=== PATIENT | female | born 1960 | race Caucasian/White ===

== ENCOUNTER 2017-02-27 15:42 | Emergency (ER) | payer OTHER ==
--- NOTE | ~2017-02-27 | ER ---
[facility] 56 [facility] [address] ROOM: [place] [id number] LOCATION: ED ADMIT DATE: 02/27/2017 ER/Outpatient Report DISCHARGE DATE: 02/27/2017 FAMILY PHYSICIAN: Ivette Winter MD ATTENDING PHYSICIAN: Enrique Vazquez Time of Arrival: 1545 hours. Time of Evaluation: 1550 hours. CHIEF COMPLAINT: Chest pain and shortness of breath. HISTORY OF PRESENT ILLNESS: The patient states around noon today, she became short of breath, felt heaviness in upper chest up into her throat and into her left arm. She states she became nauseated, but has not vomited. Did not have episodes of weakness or diaphoretic. States that she has had episodes like this before, but they have never lasted this long. She continues to have generalized fullness in her throat she reports. ALLERGIES: NO KNOWN ALLERGIES. CURRENT MEDICATIONS: On her chart and reviewed by me. PAST MEDICAL HISTORY: Mood swings, GERD, and vitamin D deficiency. PAST SURGERIES: Bilateral carpal tunnel, right foot surgery, and tubal ligation. SOCIAL HISTORY: She presents to the ER with her and daughter. Denies use of tobacco or drugs. Does drink alcohol on a social basis. REVIEW OF SYSTEMS: All negative other than those mentioned in the HPI. She states she did take aspirin at noon. PHYSICAL EXAMINATION: VITAL SIGNS: She weighs 100 kilograms, blood pressure is 174/98, pulse is 64, respirations 15, temperature is 99.1 tympanic, and O2 saturation is 96% on room air. Quintin Coma Scale is 15. GENERAL: She is awake, alert, and oriented x4. PATIENT'S NAME: JOVANI BRANNON [facility] AGE: 56 Y [address] ROOM: [place], [place] [address] LOCATION: [facility] ADMIT DATE: 02/27/2017 ER/Outpatient Report DISCHARGE DATE: 02/27/2017 FAMILY PHYSICIAN: Ivette Winter MD ATTENDING PHYSICIAN: Enrique Vazquez SKIN: [place], warm, and dry. RESPIRATIONS: Even and nonlabored. Lung sounds are clear throughout. HEART: Regular rate and rhythm. ABDOMEN: Soft. Nondistended. Bowel sounds are present. She walked in with a steady even gait. LABORATORY DATA AND X-RAYS: EKG was completed, it shows sinus rhythm, reviewed with Dr. Vazquez. CBC is within normal limits. Chem panel is within normal limits. Cardiac enzymes are negative. D-dimer was negative. EMERGENCY DEPARTMENT COURSE: The patient was monitored. Pain did improve on its own. Repeat EKG is unchanged. Repeat cardiac enzymes are within normal limits. Vital signs remained stable. Blood pressure did come down nicely and she was pain-free at the time of discharge. IMPRESSION: Chest pain. PLAN: Home. Rest. Fluids. Continue her current medications. She is to follow up with her primary provider on Wednesday or return to the ER if symptoms persist or change. She verbalized understanding. ANTOINE [employer] APRN FOR MD ERIKA ALLEN/wale /[id number] d: 02/28/17 0100 t: 03/17/17 0902, OUTPATIENT REPORT
[2017-02-27 16:15] LABS: BASOPHIL # 0.1 K/uL (0.0-0.2); BASOPHIL % 0.7 %; EOSINOPHIL # 0.1 K/uL (0.0-0.5); EOSINOPHIL % 2.1 %; HEMATOCRIT 44.4 % (33.0-46.0); HEMOGLOBIN 14.4 g/dL (10.0-15.0); IMMATURE GRANULOCYTE % 0.1 %; LYMPHOCYTE % 28.6 %; MCH 29.4 pg (27.0-34.0); MCHC 32.4 gm/dL (32.0-36.5); MCV 90.6 fl (83.0-98.0); MONOCYTE # 0.7 K/uL (0.0-1.0); MONOCYTE % 9.5 %; NRBC % 0 /100WBC (0-0.00); PLATELET COUNT 187 K/uL (150-450); RDW-CV 12.8 % (11.9-14.6); WBC 6.8 K/uL (4.0-11.0)
[2017-02-27 16:23] LABS: INR - (THERAPEUTIC) 0.91 (0.92-1.07); PROTIME 9.5 SECONDS (9.8-11.4); PTT 27 SECONDS (25-32)
[2017-02-27 16:34] LABS: ALBUMIN 3.7 gm/dL (3.5-5.0); ALK PHOS 103 IU/L (33-138); ALT 47 IU/L (12-78); ANION GAP 12.9 (10.0-19.0); AST 31 IU/L (10-40); BLOOD UREA NITROGEN 14 mg/dL (6-24); CALCIUM 8.5 mg/dL (8.5-10.5); CHLORIDE 107 mMol/L (96-110); CO2 26 mMol/L (22-32); CPK 71 IU/L (21-215); CREATININE 1.1 mg/dL (0.5-1.1); ESTIMATED GFR (MDRD EQUATION) 51; MAGNESIUM 2.2 mg/dL (1.8-2.6); POTASSIUM 3.9 mMol/L (3.7-5.1); SODIUM 142 mMol/L (135-145); TOTAL BILIRUBIN 0.7 mg/dL (0.0-1.5)
[2017-02-27 18:30] LABS: CPK 62 IU/L (21-215)
== END 2017-02-27 18:46 | disposition disaster alternative care site (69) ==
LOC: GMED 15:42
PROVIDERS: Nurse Practitioner Family
DX: R07.9 Chest pain, unspecified (principal)